=== PATIENT | female | born 1995 | race Caucasian/White ===

== ENCOUNTER → 2020-07-24 16:34 | Outpatient (CLI) | payer OTHER, SELFPAY | PROVIDERS: PCP Pediatrics; Referring Provider Obstetrics & Gynecology; Visit Provider Obstetrics & Gynecology | DX: Z03.818 Encounter for observation for suspected exposure to other biological agents ruled out (principal) | CPT/HCPCS: 87635; C9803; U0002 ==

== ENCOUNTER 2020-07-27 00:25 | Inpatient (IN) | payer OTHER, MEDICAID, SELFPAY ==
[2020-07-27] VITALS (72 sets, daily range): BP systolic 98–178; BP diastolic 54–97; PULSE 61–165; RESP 16–18; TEMP 36.3–37.6; O2SAT 94–100; BMI 24.0
[2020-07-27 00:26] LABS: ROM Internal Control Test YES-OK TO RESULT pt. (Internal QC)
[2020-07-27 00:27] LABS: ROM Patient Test POSITIVE (Negative)
[2020-07-27] MEDS: Lactated Ringers 1,000 ML 200 ML IV ×2 (00:45→08:22)
[2020-07-27 01:08] LABS: Absolute Lymphocyte Count 2.08 X10^3/uL (0.83-4.51); Absolute Neutrophil Count 4.6 X10^3/uL (2.0-7.7); Basophil# 0.02 X10^3/uL; Basophil% 0.3 % (0-1); Eosinophil# 0.06 X10^3/uL; Eosinophils% 0.8 % (0-5); Hematocrit 36.3 % (37-47); Hemoglobin 12.2 g/dL (12.0-15.0); Lymphocyte # 2.08 X10^3/ul (0.83-4.51); Lymphocyte % 28.5 % (19-41); Mean Corp Hgb Conc 33.6 g/dL (32-36); Mean Corpuscular Hgb 30.7 pg (27.0-32.0); Mean Corpuscular Volume 91.4 fL (81-99); Mean Platelet Vol. 12.1 fl (6.2-12.0); Monocyte# 0.56 X10^3/uL; Monocyte% 7.7 % (0-10); NRBC Flagged by Analyzer 0 % (0-5); Neutrophil # 4.55 X10^3/uL (2.7-7.7); Neutrophil % 62.2 % (47-70); Platelet Count 132 K/mm3 (150-450); RBC Distribution Width CV 15.4 % (11.6-14.6); RBC Distribution Width SD 51.1 fl (35.1-43.9); Red Blood Count 3.97 M/mm3 (4.2-5.4); White Blood Count 7.3 K/mm3 (4.4-11.0)
[2020-07-27] MEDS: Lactated Ringers 500 ML 999 ML IV ×3 (02:10→05:12)
[2020-07-27] MEDS: Ondansetron 4 MG/2 ML Vial IV (03:36)
[2020-07-27 03:48] LABS: ALB/GLOB Ratio 0.8 RATIO (0.9-2.4); AST(SGOT) 18 U/L (15-37); Alanine Aminotransfer ALT/SGPT 18 U/L (13-56); Alkaline Phosphatase 194 U/L (45-117); Anion Gap 7 (5-15); BUN 8 mg/dL (7-18); BUN/Creat Ratio 12.1 RATIO (10-20); Calcium,Total 9.4 mg/dL (8.5-10.1); Chloride 108 mmol/L (98-107); Creatinine, Serum 0.66 mg/dL (0.55-1.02); EST Glomerular Filtration Rate 118 mL/min (>60); Est Glom Filt Rate - Afr Amer 143 mL/min (>60); Estimated Creatinine Clearance 109.66 ml/min; Globulin 3.7 g/dL (2.2-4.2); Glucose 104 mg/dL (74-106); Potassium 3.5 mmol/L (3.5-5.1); Protein, Total 6.7 g/dL (6.4-8.2); Sodium Level 139 mmol/L (136-145)
[2020-07-27] MEDS: fentaNYL-bupivacaine (epidural) 100 ML BAG EPIDURAL (03:51)
[2020-07-27 04:49] LABS: Protein, Urine (Random) 15.3 mg/dL (<11.9); Protein:Creat Ratio 244 mg/g CRE (0-200)
[2020-07-27] MEDS: Acetaminophen 325 MG Tablet PO (05:32)
[2020-07-27] MEDS: proCHLORPERazine 10 MG/2 ML Vial IV (07:11)
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
[2020-07-27] MEDS: Oxytocin 30 units/NS 500 ml 30 UNITS/500 ML IV.SOLN 334 UNITS IV (11:30)
--- NOTE | 2020-07-27 12:58 | EX.PCM.OBRPT ---
Problems Associated Problem List Diagnoses (1) Leakage, amniotic fluid: (2) 40 weeks gestation of : Report of Operation (OB) Information Final MIMI: 07/21/20 Gestational age: 40 Weeks and 6 Days Operative Information Date of Procedure: 07/27/20 Pre-Operative Diagnosis: Term gestation, SROM, Spontaneous labor Post-Operative Diagnosis: live male infant Type of Anesthesia: Epidural Induction Maternal Presentation: Spontaneous Rupture of Membranes Maternal Presentation: Patient presented to triage with leakage of fluid and contractions. Findings Description of Procedure: Patient complete dilation. Provided bedside support throughout pushing. Infant head delivered with maternal effort followed by anterior and posterior shoulders. Vigorous infant placed on maternal abdomen and was attended to by nursing staff. 3 vessel cord clamped and cut after 2 minute delay. placed immediately skin to skin with patient. Pitocin IV started for active management of the third stage of labor. Placenta delivered spontaneously and intact. After inspection, it was noted patient had a second degree perineal laceration, vaginal laceration and bilateral labial lacerations. Lacerations repaired in usual fashion using 3-0 Vicryl. Hemostasis occurred. Fundus firm 2 below U. EBL 400 cc. Patient and infant bonding well at this time. Surgery/ Procedure Performed: Spontaneous Vaginal Delivery Presentation: Positive for Vertex Amniotic Membrane Rupture Type: Spontaneous Time Membrane Ruptured: 1030 Amniotic Fluid Description: Clear Placental Delivery Description: Spontaneous Placenta Disposition: [facility] Cord Vessel Description: 3 Vessels Cord Entanglement: None, Around neck x 1, loose and - (Around body X1 loose) Nuchal Cord Compression: Without compression Gender: Male (1 minute): 8 (5 minute): 10 Delayed Cord Clamping: Yes Esitmated Blood Loss (mL): 400 Medications Given Medications Given After Delivery: IV Pitocin Post Vaginal Delivery Episiotomy Description: None Laceration: Vaginal Extension/lac (Bilateral labial ) and 2nd degree Complications Complications: None Baby B Information Amniotic Membrane Rupture Type: Spontaneous Operative Information Cord Entanglement: None, Around neck x 1, loose and - (Around body X1 loose) Cord Vessel Description: 3 Vessels (1 minute): 8 (5 minute): 10
--- NOTE | 2020-07-27 15:59 | NURSING ---
[facility] from [facility] draw on 01/08/2020 pt is O negative. At 28wks and 2 days at [facility] pt received Rhogam. Upon admission at [facility] blood bank resulted in pt being 0 positive. Nurse discussed this with Wero in Blood Bank and he requested another large purple tube of her blood. Tube was sent and it was confirmed that pt is O positive. This information was passed on to Vicki felix. She is looking into the matter through [facility].
[2020-07-27] MEDS: Ibuprofen 600 MG Tablet PO (16:44)
--- NOTE | 2020-07-27 17:33 | NURSING ---
Pt is rubella immune and will not be receiving MMR per review of chart.
[2020-07-27] MEDS: Ferrous Sulfate 325 MG Tablet PO (18:55)
[2020-07-27] MEDS: Acetaminophen 500 MG Tablet 1000 MG PO (20:19)
[2020-07-28 00:06] VITALS: BP 143/90; PULSE 103; RESP 16; TEMP 36.4; O2SAT 100
[2020-07-28] MEDS: Ibuprofen 600 MG Tablet PO ×4 (00:18→23:48)
[2020-07-28] MEDS: Acetaminophen 500 MG Tablet 1000 MG PO ×3 (04:22→20:32)
[2020-07-28 04:26] VITALS: BP 129/75; PULSE 111; RESP 16; TEMP 36.7; O2SAT 99
[2020-07-28 08:08] VITALS: BP 129/78; PULSE 106; RESP 18; TEMP 36.2; O2SAT 99
--- NOTE | 2020-07-28 11:27 | PCM.PN.OB ---
Subjective Subjective: Patient seen at bedside. Feeling good today. Reports getting some sleep. going well with support. Ambulating and voiding without difficulty. Ice to perineum. Lochia decreasing. Pain controlled with Motrin and Tylenol PO. Desires discharge home tomorrow. Objective Data Objective Data Vital Signs: Vital Signs Temp Pulse Resp BP Pulse Ox 97.1 F L 106 H 18 129/78 H 99 07/28/20 08:08 07/28/20 08:08 07/28/20 08:08 07/28/20 08:08 07/28/20 08:08 Oxygen Delivery Method Room Air Weight: 136 lb 0.403 oz Body Mass Index (BMI) 24.0 Intake & Output: Intake and Output for Last 24 Hours 07/26/20 07/27/20 07/28/20 23:59 23:59 23:59 Intake Total 3876.67 / 3876.67 Output Total 1400 / 1400 300 / 300 Balance 2476.67 / 2476.67 -300 / -300 Lab / Micro Data Result Diagrams: 07/27/20 00:45 07/27/20 00:45 Physical Exam Const alert and no apparent distress General Appearance: cooperative and comfortable Exam Limitations: no limitations HEENT normocephalic Eyes General Eye: normal appearance of both eyes Neck full ROM General: normal visual inspection Chest Chest: symmetrical chest wall rise Resp normal respiratory effort and normal air movement Effort and Inspection: symmetric chest movement Auscultation: clear to auscultation bilaterally Cardio regular rate and regular rhythm GI normal to inspection, nondistended, normoactive bowel sounds Groin / Perineum Exam: other Laceration well approximated. Minimal edema noted. Back/Spine normal ROM Extremity full ROM and no calf tenderness General Extremity: normal exam except as noted Skin no rashes or lesions noted Neuro CN's II-XII intact bilaterally Psych mental status grossly normal Assessment & Plan Assessment/Plan (1) (spontaneous vaginal delivery): Status: Acute Code(s): O80 - Encounter for full-term uncomplicated delivery (2) Laceration, obstetrical, second degree: Status: Acute Code(s): O70.1 - Second degree perineal laceration during delivery Plan: Routine care Rotate Ice packs and Witch Nighat pads to perineum Pain control support Anticipate discharge home tomorrow
[2020-07-28 12:09] VITALS: BP 124/87; PULSE 108; RESP 18; TEMP 36.1
[2020-07-28] MEDS: Senna/Docusate Sodium 1 Tablet PO (12:24)
[2020-07-28] MEDS: Ferrous Sulfate 325 MG Tablet PO (15:07)
[2020-07-28 17:45] VITALS: BP 125/81; PULSE 97; RESP 18; TEMP 36.3; O2SAT 98
[2020-07-28 20:23] VITALS: BP 127/92; PULSE 100; RESP 16; TEMP 36.6
[2020-07-29 02:00] VITALS: BP 141/91; PULSE 91; RESP 14; TEMP 36.6
[2020-07-29] MEDS: Acetaminophen 500 MG Tablet 1000 MG PO (05:56)
[2020-07-29] MEDS: Ibuprofen 600 MG Tablet PO (07:37)
[2020-07-29 07:43] VITALS: BP 123/84; PULSE 96; RESP 14; TEMP 36.4
--- NOTE | 2020-07-29 08:45 | PN_ITS ---
Subjective Subjective: Doing well per patient and nursing staff. Ambulating and taking PO without difficulty. . Denies any headache, visual changes, chest pain, SOB, leg pain or increased vaginal bleeding. Planning D/C home today. Pain controlled. Objective Data Objective Data Vital Signs: Vital Signs Temp Pulse Resp BP Pulse Ox 97.6 F L 96 14 123/84 H 98 07/29/20 07:43 07/29/20 07:43 07/29/20 07:43 07/29/20 07:43 07/28/20 17:45 Oxygen Delivery Method Room Air Weight: 136 lb 0.403 oz Body Mass Index (BMI) 24.0 Intake & Output: Intake and Output for Last 24 Hours 07/27/20 07/28/20 07/29/20 23:59 23:59 23:59 Intake Total 3876.67 / 3876.67 Output Total 1400 / 1400 300 / 300 Balance 2476.67 / 2476.67 -300 / -300 Lab / Micro Data Result Diagrams: 07/27/20 00:45 07/27/20 00:45 Physical Exam Const alert and oriented x3 General Appearance: cooperative Orientation / Consciousness: awake, oriented to person, oriented to place and oriented to time Exam Limitations: no limitations HEENT normocephalic Head and Scalp: normal to inspection, normocephalic and atraumatic Face and Sinus: normal facial exam Eyes General Eye: normal appearance of both eyes Neck full ROM Chest Chest: symmetrical chest wall rise Resp normal respiratory effort and normal air movement Auscultation: clear to auscultation bilaterally Cardio regular rate, regular rhythm, S1 normal heart sound, S2 normal heart sound, no m urmurs, no rub, no gallops and no clicks GI normal to inspection, nondistended, normoactive bowel sounds and non-tender GI Narrative: fundus firm 2 below U appearance of the vagina normal Bladder / Kidney Exam: no CVA tenderness Back/Spine normal ROM Extremity normal to inspection and full ROM Skin no rashes or lesions noted Neuro oriented x3 and moves all extremities Sensorium / Orientation: awake, alert and oriented to person Motor Exam: clonus absent Deep Tendon Reflexes: Rt Patellar (L4): 2+ and Lt Patellar (L4): 2+ Assessment & Plan Assessment/Plan (1) (spontaneous vaginal delivery): Status: Acute Code(s): O80 - Encounter for full-term uncomplicated delivery Plan: 1) PPD#2. Routine discharge and instructions 2) 3) D/C home 4) Follow up in 2 weeks virtually and 6 weeks in office
[2020-07-29 12:16] VITALS: BP 132/80; PULSE 100; RESP 15; TEMP 36.1
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
== END 2020-07-29 12:30 | disposition home or self-care (01) | DRG 807 ==
LOC: WPOUT 00:28 → WP 00:28
PROVIDERS: Admitting Provider Advanced Practice Midwife; PCP Pediatrics; Referring Provider Advanced Practice Midwife; Visit Provider Advanced Practice Midwife
DX: O42.92 Full-term premature rupture of membranes, unspecified as to length of time between rupture and onset of labor (principal); Z37.0 Single live birth; O70.1 Second degree perineal laceration during delivery; O69.81X0 Labor and delivery complicated by cord around neck, without compression, not applicable or unspecified; Z3A.40 40 weeks gestation of pregnancy; F43.10 Post-traumatic stress disorder, unspecified; O99.344 Other mental disorders complicating childbirth
CPT/HCPCS: 59025; 59050; 80053; 82570; 84112; 84156; 85025; 86850; 86900; 86901; 99218; J7120; G0378; J2405

== ENCOUNTER → 2020-07-30 20:00 | Outpatient (CLI) | payer OTHER, MEDICAID, SELFPAY ==
[2020-07-27 00:14] VITALS: BMI 24.0
== END ==
PROVIDERS: PCP Pediatrics; Referring Provider Advanced Practice Midwife; Visit Provider Advanced Practice Midwife
DX: Z39.1 Encounter for care and examination of lactating mother (principal)
CPT/HCPCS: 96158

== ENCOUNTER 2021-02-16 09:53 | Emergency (ER) | payer OTHER, MEDICAID, SELFPAY ==
[2021-02-16 09:54] VITALS: BP 115/81; PULSE 83; RESP 17; TEMP 36.6; O2SAT 100; BMI 18.5
--- NOTE | 2021-02-16 10:08 | EKG12_ITS ---
Test Reason : SYNCOPE Blood Pressure : / mmHG Vent. Rate : 067 BPM Atrial Rate : 067 BPM P-R Int : 138 ms QRS Dur : 070 ms QT Int : 388 ms P-R-T Axes : -24 057 042 degrees QTc Int : 409 ms Normal sinus rhythm Normal ECG Confirmed by RAMON VIVAS, EMIGDIO ([id number]), sports editor DERECK OLMOS ([id number]) on 02/17/2021 1:55:26 PM Referred By: Confirmed By:EMIGDIO NAVARRO MD
--- NOTE | 2021-02-16 10:08 | RAD_ITS ---
STUDY: X-RAY CHEST REASON FOR EXAM: Female, 25 years old. Syncope TECHNIQUE: Single AP portable view of the chest. COMPARISON: None. FINDINGS: EKG leads overlie the chest The lungs are clear and expanded. There is no demonstrated pleural abnormality. Normal size heart. Normal mediastinum and mendoza. Normal visualized pulmonary arteries. Normal visualized aortic arch and descending thoracic aorta. Normal visualized thoracic spine. Normal visualized ribs, clavicles, and shoulders. There is no demonstrated abnormality of the visualized soft tissue structures of the upper abdomen. RAD/Chest 1 View (Portable) IMPRESSION: Normal x-ray examination of the chest. Electronically Signed: Duc Matos MD at 10:45 EST , Service support ,
--- NOTE | 2021-02-16 10:10 | EX.ED.DYSGE1 ---
HPI History of Present Illness Chief Complaint: Syncope Informant: patient and parent Onset/Context/Timing Onset: Today Context: Sudden Onset Timing: Lasts (Approximately 1 minute) Quality: Hot Location: Generalized Worsened by: Nothing Relieved by: Nothing Associated Symptoms Associated Symptoms: Menstrual cramping, paresthesias, nausea Narrative Narrative: Presents with a syncopal episode that occurred today. Patient states she was having some menstrual cramps prior to the syncopal episode. Patient states she felt hot prior to the syncopal episode. Patient states she was out for approximately 1 minute. Patient denies any palpitations. Patient denies any lightheadedness or dizziness prior to passing out. Patient states that she was nauseated before and after she passed out. Patient also admits to some tingling in her hands and fingers after she passed out for a few minutes. Patient states this has resolved since that time. [facility] Medical History Anxiety Autoimmune disease Depression Headache Trauma Home Medications cholecalciferol (vitamin D3) [Vitamin D3] 125 mcg PO DAILY 07/27/20 [History Last Taken Unknown] levocetirizine [Xyzal] 5 mg PO DAILY 07/27/20 [History Last Taken Unknown] [id number] 1 tab PO DAILY 07/27/20 [History Last Taken Unknown] Allergy/AdvReac Type Severity Reaction Status Date / Time animal dander Allergy Other Verified 07/27/20 00:19 Sulfa (Sulfonamide Allergy Hives Verified 07/27/20 00:19 Antibiotics) Social History Smoking Status: Never smoker ROS ROS ED Constitutional Constitutional ED: Denies chills or fever(s) Eyes Eyes: Denies blurry vision or change in vision ENT ENT ED: Denies rhinorrhea or sore throat Cardiovascular Cardiovascular: Denies chest pain or palpitations Respiratory/Chest Respiratory/Chest: Denies cough or dyspnea Gastrointestinal Gastrointestinal: Reports abdominal pain and nausea; Denies vomiting Genitourinary Genitourinary ED: Denies dysuria or hematuria Musculoskeletal Musculoskeletal: Denies back pain or neck pain Integumentary Denies abscess or rash Neurologic Neurologic: Reports paresthesias; Denies headache(s) or weakness Allergic/Immunologic Allergic/Immunologic ED: Denies mouth swelling or urticaria EXAM Physical Exam Const Vital Signs: 02/16/21 09:54 02/16/21 09:59 Temperature 97.8 F Temperature Source Oral Pulse Rate 83 Respiratory Rate 17 Respiratory Effort Normal Non-Labored Respiratory Pattern Normal Blood Pressure 115/81 H Blood Pressure Mean 92 Pulse Ox 100 Oxygen Delivery Method Room Air Positive well nourished and well developed General Appearance ED: well developed HEENT Reports moist mucous membranes Neck supple and no JVD Resp normal respiratory effort and clear to auscultation bilaterally Cardio regular rate, regular rhythm and no murmurs GI normal to inspection, nondistended, normoactive bowel sounds and non-tender Palpation: soft Extremity normal to inspection General Extremety ED: Negative for edema or tenderness General Extremity: Negative for edema Neuro oriented x3, CN's II-XII intact bilaterally and no sensory deficits noted Sensorium / Orientation: alert Motor Exam: strength 5/5 throughout Psych mental status grossly normal Skin no rashes or lesions noted MDM MDM MDM Narrative Medical decision making narrative: EKG was obtained. On my interpretation, it showed a normal sinus rhythm with a rate of 67. FL interval, QRS interval, and QTc intervals were all normal. [place] was normal. There are no acute ST or T wave changes. There is clearly within normal limits. Comprehensive metabolic profile was within normal limits. Serum hCG was negative. Urinalysis shows leukocyte esterase of 100. Occult blood was 250. There are greater than 100 red blood cells. Patient is currently on her menstrual period. There is no evidence of urinary tract infection. Patient was advised of her findings. Portable 1 view chest x-ray was obtained. On my interpretation, lung funes are clear. There is normal cardiac silhouette. Bony thorax is normal. There is no acute process noted. Radiologist also interpreted the x-ray and agrees. Patient was advised of her findings. Patient was instructed to follow-up with her primary care physician in 3 to 5 days. Patient was instructed to drink plenty of fluids. Patient was instructed to return if worse in any way. Patient and her mother understood and were agreeable with the plan. All questions were answered. Lab Data Attestation: I reviewed the patient's lab results. Labs: Laboratory Results - last 24 hr 02/16/21 02/16/21 02/16/21 10:00 10:00 10:00 WBC 5.8 RBC 4.68 Hgb 13.7 Hct 40.5 MCV 86.5 MCH 29.3 MCHC 33.8 RDW Std Deviation 41.0 RDW Coeff of [place] 13.0 Plt Count 223 MPV 10.5 Immature Gran % (Auto) 0.200 Neut % (Auto) 72.5 H Lymph % (Auto) 19.6 [place] % (Auto) 4.6 Eos % (Auto) 2.6 Baso % (Auto) 0.5 Absolute Neuts (auto) 4.2 Absolute Lymphs (auto) 1.14 Nucleated RBC % 0 Sodium 139 Potassium 4.2 Chloride 110 H Carbon Dioxide 25.0 Anion Gap 4 L BUN 13 Creatinine 0.79 Estim Creat Clear Calc 80.25 Est GFR (MDRD) Af Amer 115 Est GFR (MDRD) Non-Af 95 BUN/Creatinine Ratio 16.4 Glucose 98 Calcium 8.9 Total Bilirubin 1.10 H AST 17 ALT 20 Alkaline Phosphatase 71 Total Protein 7.3 Albumin 3.8 Globulin 3.5 Albumin/Globulin Ratio 1.1 Serum , Qual NEGATIVE Urine Color Urine Clarity Urine pH Ur Specific [place] Urine Protein Urine Glucose (UA) Urine Ketones Urine Occult Blood Urine Nitrite Urine Bilirubin Urine Urobilinogen Ur Leukocyte Esterase Urine RBC Urine WBC Ur Squamous Epith Cells Urine Bacteria Urine Mucus 02/16/21 12:55 WBC RBC Hgb Hct MCV MCH MCHC RDW Std Deviation RDW Coeff of [place] Plt Count MPV Immature Gran % (Auto) Neut % (Auto) Lymph % (Auto) [place] % (Auto) Eos % (Auto) Baso % (Auto) Absolute Neuts (auto) Absolute Lymphs (auto) Nucleated RBC % Sodium Potassium Chloride Carbon Dioxide Anion Gap BUN Creatinine Estim Creat Clear Calc Est GFR (MDRD) Af Amer Est GFR (MDRD) Non-Af BUN/Creatinine Ratio Glucose Calcium Total Bilirubin AST ALT Alkaline Phosphatase Total Protein Albumin Globulin Albumin/Globulin Ratio Serum , Qual Urine Color Yellow Urine Clarity Cloudy Urine pH 6.0 Ur Specific [place] 1.020 Urine Protein 100 H Urine Glucose (UA) Normal Urine Ketones 50 H Urine Occult Blood 250 H Urine Nitrite Negative Urine Bilirubin Negative Urine Urobilinogen Normal Ur Leukocyte Esterase 100 H Urine RBC > 100 SEEN Urine WBC 0 SEEN Ur Squamous Epith Cells 0-5 SEEN Urine Bacteria 0 SEEN Urine Mucus 0 SEEN Radiography Chest X-Ray - ED: 1 View, Read by ED Physician, Read by Radiologist and Normal Diagnostic Testing: Clinical Impression(s) from Imaging Studies Chest X-Ray 02/16/21 10:08 IMPRESSION: Normal x-ray examination of the chest. Electronically Signed: Duc Matos MD at 10:45 EST , Service support , EKG Initial EKG: Attestation: I personally reviewed and interpreted this EKG as follows: Interpretation: Sinus Rhythm (67) and No Acute Injury Pattern Prior EKG tracings: not available for review Discharge Plan Triage Chief Complaint: Syncope ED Provider: Jeremie Oakes Dx/Rx/DC Orders Clinical Impression: Syncope Instructions: ED Fainting, Uncertain Cause Prescriptions: No Action [id number] 1 mg Tablet 1 tab PO DAILY RF: 0 cholecalciferol (vitamin D3) [Vitamin D3] 125 mcg (5,000 unit) Tablet 125 mcg PO DAILY RF: 0 levocetirizine [Xyzal] 5 mg Tablet 5 mg PO DAILY RF: 0 Hold Instructions: while if possible. Primary Care Provider: Malachi Smith Referrals: Malachi Smith MD [Primary Care Provider] - 3-5 Days Disposition Disposition: Home, Self Care
--- NOTE | 2021-02-16 10:11 | NURSING ---
NO OLD EKGS
[2021-02-16 10:23] LABS: Absolute Lymphocyte Count 1.14 X10^3/uL (0.83-4.51); Absolute Neutrophil Count 4.2 X10^3/uL (2.0-7.7); Basophil# 0.03 X10^3/uL; Basophil% 0.5 % (0-1); Eosinophil# 0.15 X10^3/uL; Eosinophils% 2.6 % (0-5); Hematocrit 40.5 % (37-47); Hemoglobin 13.7 g/dL (12.0-15.0); Lymphocyte # 1.14 X10^3/ul (0.83-4.51); Lymphocyte % 19.6 % (19-41); Mean Corp Hgb Conc 33.8 g/dL (32-36); Mean Corpuscular Hgb 29.3 pg (27.0-32.0); Mean Corpuscular Volume 86.5 fL (81-99); Mean Platelet Vol. 10.5 fl (6.2-12.0); Monocyte# 0.27 X10^3/uL; Monocyte% 4.6 % (0-10); NRBC Flagged by Analyzer 0 % (0-5); Neutrophil # 4.23 X10^3/uL (2.7-7.7); Neutrophil % 72.5 % (47-70); Platelet Count 223 K/mm3 (150-450); Red Blood Count 4.68 M/mm3 (4.2-5.4); White Blood Count 5.8 K/mm3 (4.4-11.0)
[2021-02-16] MEDS: 0.9% Normal Saline 1,000 ML 1000 ML IV (10:25)
[2021-02-16 10:33] LABS: ALB/GLOB Ratio 1.1 RATIO (0.9-2.4); AST(SGOT) 17 U/L (15-37); Alanine Aminotransfer ALT/SGPT 20 U/L (13-56); Albumin, Serum 3.8 g/dL (3.2-5.0); Alkaline Phosphatase 71 U/L (45-117); Anion Gap 4 (5-15); BUN 13 mg/dL (7-18); BUN/Creat Ratio 16.4 RATIO (10-20); Calcium,Total 8.9 mg/dL (8.5-10.1); Chloride 110 mmol/L (98-107); Creatinine, Serum 0.79 mg/dL (0.55-1.02); EST Glomerular Filtration Rate 95 mL/min (>60); Est Glom Filt Rate - Afr Amer 115 mL/min (>60); Estimated Creatinine Clearance 80.25 ml/min; Globulin 3.5 g/dL (2.2-4.2); Glucose 98 mg/dL (74-106); Potassium 4.2 mmol/L (3.5-5.1); Protein, Total 7.3 g/dL (6.4-8.2); Sodium Level 139 mmol/L (136-145)
[2021-02-16 10:44] LABS: Internal QC Validated? YES +Cl - CLEAR BKGD; Pregnancy, Serum, hCG Quali. NEGATIVE Negative
[2021-02-16 13:01] LABS: Bacteria 0 SEEN /hpf (None Seen); Mucous, Urine 0 SEEN /hpf (<or=2+); White Blood Cells 0 SEEN /hpf (0-5)
[2021-02-16 13:02] LABS: Color, Urine Yellow (Yellow); Glucose, Dipstick Normal (Normal); Ketone-Dipstick 50 mg/dl (Negative); Leukocyte Esterase-Dipstick 100 /ul (Negative); Nitrite-Dipstick Negative (Negative); Occult Blood-Urine 250 /ul (Negative); Protein-Dipstick 100 mg/dl (Negative); Urine Bilirubin Dipstick Negative (Negative); Urine Clarity Cloudy (Clear); Urine Urobilinogen Normal (Normal)
[2021-02-16 13:08] LABS: Red Blood Cells-Urine > 100 SEEN /hpf (0-5); Squamous Epithelial Cells - UA 0-5 SEEN /hpf (5-10)
[2021-02-16 13:44] VITALS: BP 114/73; PULSE 73; RESP 23; O2SAT 100
== END 2021-02-16 13:45 | disposition home or self-care (01) ==
PROVIDERS: Emergency Provider Emergency Medicine; PCP Pediatrics
DX: R55 Syncope and collapse (principal); R25.2 Cramp and spasm; R10.9 Unspecified abdominal pain; R11.0 Nausea; D89.89 Other specified disorders involving the immune mechanism, not elsewhere classified; F32.A Depression, unspecified; F41.9 Anxiety disorder, unspecified; Z79.899 Other long term (current) drug therapy
CPT/HCPCS: 71045; 80053; 81001; 84703; 85025; 93005; 99285; J7030; A4216

== ENCOUNTER 2021-10-25 14:42 | Emergency (ER) | payer OTHER, MEDICAID, SELFPAY ==
[2021-10-25 14:43] VITALS: BP 110/70; PULSE 86; RESP 18; TEMP 35.9; O2SAT 96; BMI 18.5
--- NOTE | 2021-10-25 15:10 | EKG12_ITS ---
Test Reason : SYNCOPE Blood Pressure : / mmHG Vent. Rate : 093 BPM Atrial Rate : 093 BPM P-R Int : 152 ms QRS Dur : 076 ms QT Int : 380 ms P-R-T Axes : 055 049 065 degrees QTc Int : 472 ms Normal sinus rhythm Normal ECG Confirmed by RAMON VIVAS, EMIGDIO ([id number]), editorial intern DERECK OLMOS ([id number]) on 10/28/2021 12:59:17 PM Referred By: TL Confirmed By:EMIGDIO NAVARRO MD
--- NOTE | 2021-10-25 15:11 | EX.ED.GENINJ ---
HPI History of Present Illness Chief Complaint: Nausea/Vomiting/Diarrhea Informant: patient and EMS Narrative Narrative: Brought in by EMS after syncopal episode around 1:30 PM. Prodromal lightheaded symptoms. Awakened this morning 330 vomiting and diarrhea recurrent episodes 430, 830 and then at 130. No sick contacts. [place] warm per mother. No abdominal pain. Patient ate with family yesterday chicken dinner, nobody else sick. Last menstrual period a week ago. No history of similar. History of fibromyalgia on medications. Denies recent antibiotics. Status post Zofran by EMS with improving symptoms. Status post 500 cc of normal saline. Denies any prodromal chest pains or shortness of breath. Prior similar symptoms: No PFSH PFSH Medical History Anxiety Autoimmune disease Depression Headache Trauma Home Medications cholecalciferol (vitamin D3) 125 mcg (5,000 unit) tablet (Vitamin D3) 125 mcg PO DAILY 07/27/20 [History Last Taken Unknown] levocetirizine 5 mg tablet (Xyzal) 5 mg PO DAILY 07/27/20 [History Last Taken Unknown] amitriptyline 10 mg tablet 10 mg PO QHS 10/25/21 [History Last Taken Unknown] drospirenone 3 mg-ethinyl estradiol 0.02 mg tablet (Loryna (28)) 1 tab PO DAILY 10/25/21 [History Last Taken Unknown] methylphenidate HCl 10 mg tablet 10 mg PO DAILY 10/25/21 [History Last Taken Unknown] omeprazole 40 mg capsule,delayed release 40 mg PO BID 10/25/21 [History Last Taken Unknown] ondansetron 4 mg disintegrating tablet 4 mg PO Q6H PRN nausea and vomiting #10 tabs 10/25/21 [Rx Last Taken Unknown] Allergy/AdvReac Type Severity Reaction Status Date / Time animal dander Allergy Other Verified 10/25/21 14:43 Sulfa (Sulfonamide Allergy Hives Verified 10/25/21 14:43 Antibiotics) Social History Smoking Status: Never smoker ROS ROS ED Constitutional Constitutional ED: Denies chills, fever(s) or sweats Eyes Eyes: Denies change in vision ENT ENT ED: Denies dysphagia or sore throat Cardiovascular Cardiovascular: Reports other Details: Syncope ; Denies chest pain, leg edema, palpitations or racing heartbeat Respiratory/Chest Respiratory/Chest: Denies cough, dyspnea or dyspnea on exertion Gastrointestinal Gastrointestinal: Reports diarrhea, nausea and vomiting; Denies abdominal pain Genitourinary Genitourinary ED: Denies dysuria, hematuria or urinary frequency Musculoskeletal Musculoskeletal: Denies back pain, extremity pain or neck pain Integumentary Denies rash or wounds Neurologic Neurologic: Denies headache(s), paresthesias or weakness EXAM Physical Exam Const Vital Signs: 10/25/21 14:43 10/25/21 16:43 10/25/21 16:57 Temperature 96.7 F L Temperature Source Temporal Pulse Rate 86 81 81 Respiratory Rate 18 22 H 18 Blood Pressure 110/70 121/81 H 121/81 H Blood Pressure Mean 83 94 Pulse Ox 96 100 100 Oxygen Delivery Method Room Air Room Air Positive well nourished and well developed General Appearance ED: well developed and NAD HEENT HEENT Narrative: Mild dry mucosal membranes normocephalic and atraumatic Eyes PERRL, EOMs intact bilaterally and conjunctivae normal General Eye ED: Yes normal appearance of both eyes Neck no lymphadenopathy and supple General: Negative for tenderness Chest Wall Chest: Negative for tenderness Resp normal respiratory effort and normal air movement Effort and Inspection: symmetric chest movement; Negative for respiratory distress Cardio regular rate, regular rhythm and no murmurs Peripheral Pulses: pulses 2+ throughout GI normal to inspection, nondistended, normoactive bowel sounds and non-tender GI Narrative: Negative Muñoz's or McBurney's tenderness Palpation: Negative for guarding or rebound tenderness present Back/Spine no CVA tenderness and no thoracic nor lumbar tenderness Extremity normal to inspection General Extremety ED: Negative for edema or tenderness General Extremity: Negative for edema Neuro oriented x3 and no sensory deficits noted Sensorium / Orientation: awake and alert Skin no rashes or lesions noted and no wounds MDM MDM MDM Narrative Medical decision making narrative: Patient vital stable no focal deficits. EKG normal. She is already feeling better with Zofran and fluids given by EMS. She is given additional liter of fluids. I did check labs which are normal. Urine had leukocytes and white cells and bacteria she did not have any symptoms therefore sent for culture. Would not treat at this time. She is unable to provide a stool sample she has no C. difficile risk factors. She is tolerating oral fluids on reevaluation. Prescription for Zofran to use as needed. She is able to ambulate with no return of symptoms. Outpatient follow-up with return precautions. All questions were answered. Lab Data Attestation: I reviewed the patient's lab results. Labs: Laboratory Results - last 24 hr 10/25/21 10/25/21 10/25/21 15:15 15:15 15:28 WBC 9.8 RBC 4.82 Hgb 14.0 Hct 43.6 MCV 90.5 MCH 29.0 MCHC 32.1 RDW Std Deviation 42.7 RDW Coeff of [place] 12.9 Plt Count 214 MPV 10.4 Immature Gran % (Auto) 0.500 Neut % (Auto) 90.9 H Lymph % (Auto) 5.1 L [place] % (Auto) 3.0 Eos % (Auto) 0.3 Baso % (Auto) 0.2 Absolute Neuts (auto) 8.9 H Absolute Lymphs (auto) 0.50 L Nucleated RBC % 0 Differential Comment SEE COMMENT Platelet Estimate ADEQUATE RBC Morphology N CHROM Anisocytosis RARE Macrocytosis RARE Sodium 141 Potassium 4.0 Chloride 114 H Carbon Dioxide 22.0 Anion Gap 5 BUN 12 Creatinine 0.70 Estim Creat Clear Calc 89.99 Est GFR (MDRD) Af Amer 132 Est GFR (MDRD) Non-Af 109 BUN/Creatinine Ratio 17.1 Glucose 99 Calcium 8.4 L Urine Color Yellow Urine Clarity Clear Urine pH 6.0 Ur Specific [place] 1.020 Urine Protein 30 H Urine Glucose (UA) Normal Urine Ketones 5 H Urine Occult Blood Negative Urine Nitrite Negative Urine Bilirubin Negative Urine Urobilinogen Normal Ur Leukocyte Esterase 100 H Urine RBC 0-5 SEEN Urine WBC 10-25 SEEN Ur Squamous Epith Cells 0-5 SEEN Urine Bacteria 2+ Urine Mucus 3+ Urine Test Negative EKG Initial EKG: Attestation: I personally reviewed and interpreted this EKG as follows: Comments: Sinus rate of 93, no ST or T wave changes QTC 472. Discharge Plan Triage Chief Complaint: Nausea/Vomiting/Diarrhea Other Complaint: Syncope ED Provider: Curtis Peres Dx/Rx/DC Orders Clinical Impression: Nausea vomiting and diarrhea, Syncope, History of fibromyalgia Instructions: Causes of Syncope, ED Vomiting and Diarrhea ... Prescriptions: New ondansetron 4 mg tablet,disintegrating 4 mg PO Q6H PRN (Reason: nausea and vomiting) Qty: 10 0RF No Action cholecalciferol (vitamin D3) [Vitamin D3] 125 mcg (5,000 unit) Tablet 125 mcg PO DAILY levocetirizine [Xyzal] 5 mg Tablet 5 mg PO DAILY Hold Instructions: while if possible. methylphenidate HCl 10 mg Tablet 10 mg PO DAILY omeprazole 40 mg Capsule,Delayed Release(Dr/Ec) 40 mg PO BID amitriptyline 10 mg Tablet 10 mg PO QHS drospirenone-ethinyl estradiol [[place] (28)] 3-0.02 mg Tablet 1 tab PO DAILY Primary Care Provider: Malachi Smith Referrals: Malachi Smith MD [Primary Care Provider] - 3-5 Days Activity Restrictions/Additional Instructions: Normal EKG labs are stable. Continue oral fluids for hydration. Zofran as needed. Follow-up with your doctor. Disposition Disposition: Home, Self Care Discharge Date/Time: 10/25/21 16:58
[2021-10-25] MEDS: 0.9% Normal Saline 1,000 ML 1000 ML IV (15:20)
[2021-10-25 15:41] LABS: Anion Gap 5 (5-15); BUN 12 mg/dL (7-18); BUN/Creat Ratio 17.1 RATIO (10-20); Calcium,Total 8.4 mg/dL (8.5-10.1); Chloride 114 mmol/L (98-107); EST Glomerular Filtration Rate 109 mL/min (>60); Est Glom Filt Rate - Afr Amer 132 mL/min (>60); Estimated Creatinine Clearance 89.99 ml/min; Glucose 99 mg/dL (74-106); Sodium Level 141 mmol/L (136-145)
[2021-10-25 15:42] LABS: Color, Urine Yellow (Yellow); Glucose, Dipstick Normal (Normal); Ketone-Dipstick 5 mg/dl (Negative); Leukocyte Esterase-Dipstick 100 /ul (Negative); Nitrite-Dipstick Negative (Negative); Occult Blood-Urine Negative /ul (Negative); Protein-Dipstick 30 mg/dl (Negative); Urine Bilirubin Dipstick Negative (Negative); Urine Clarity Clear (Clear); Urine Urobilinogen Normal (Normal)
[2021-10-25 15:49] LABS: Absolute Neutrophil Count 8.9 X10^3/uL (2.0-7.7); Basophil# 0.02 X10^3/uL; Basophil% 0.2 % (0-1); Eosinophil# 0.03 X10^3/uL; Eosinophils% 0.3 % (0-5); Hematocrit 43.6 % (37-47); Lymphocyte % 5.1 % (19-41); Mean Corp Hgb Conc 32.1 g/dL (32-36); Mean Corpuscular Volume 90.5 fL (81-99); Mean Platelet Vol. 10.4 fl (6.2-12.0); Monocyte# 0.29 X10^3/uL; NRBC Flagged by Analyzer 0 % (0-5); Neutrophil # 8.87 X10^3/uL (2.7-7.7); Neutrophil % 90.9 % (47-70); POSITIVE DIFFERENTIAL YES; Platelet Count 214 K/mm3 (150-450); RBC Distribution Width CV 12.9 % (11.6-14.6); RBC Distribution Width SD 42.7 fl (35.1-43.9); Red Blood Count 4.82 M/mm3 (4.2-5.4); White Blood Count 9.8 K/mm3 (4.4-11.0)
[2021-10-25 15:51] LABS: Internal QC Validated? YES +Cl - CLEAR BKGD; Pregnancy, Urine Negative Negative
[2021-10-25 15:52] LABS: Differential Indicated SCAN CRITERIA MET
[2021-10-25 16:12] LABS: Bacteria 2+ /hpf (None Seen); Mucous, Urine 3+ /hpf (<or=2+); Red Blood Cells-Urine 0-5 SEEN /hpf (0-5); Squamous Epithelial Cells - UA 0-5 SEEN /hpf (5-10); White Blood Cells 10-25 SEEN /hpf (0-5)
[2021-10-25 16:22] LABS: Platelet Estimate ADEQUATE (ADEQ); Red Cell Morphology N CHROM NORMAL (NORM C&C)
[2021-10-25 16:23] LABS: Anisocytosis RARE; Macrocytosis RARE
[2021-10-25 16:43] VITALS: BP 121/81; PULSE 81; RESP 22; O2SAT 100
[2021-10-25 16:57] VITALS: BP 121/81; PULSE 81; RESP 18; O2SAT 100
== END 2021-10-25 16:58 | disposition home or self-care (01) ==
PROVIDERS: Emergency Provider Emergency Medicine; PCP Pediatrics; Visit Provider Emergency Medicine
DX: R11.2 Nausea with vomiting, unspecified (principal); R19.7 Diarrhea, unspecified; R55 Syncope and collapse; Z79.899 Other long term (current) drug therapy
CPT/HCPCS: 80048; 81001; 81025; 85025; 87086; 87088; 93005; 99285; A4216

== ENCOUNTER 2022-01-25 00:41 | Emergency (ER) | payer OTHER, MEDICAID, SELFPAY ==
[2022-01-25 00:43] VITALS: BP 128/85; PULSE 90; RESP 15; TEMP 36.7; O2SAT 100; BMI 19.3
--- NOTE | 2022-01-25 01:05 | CT_ITS ---
STUDY: CT ABDOMEN AND PELVIS WITHOUT CONTRAST REASON FOR EXAM: Female, 26 years old. Kidney Stone RADIATION DOSAGE (If Supplied By Facility): CTDIvol = ( 6.04 ) mGy, DLP = ( 271.80 ) mGycm TECHNIQUE: Transaxial images were obtained from the dome of the diaphragm to the symphysis pubis without oral contrast, and without intravenous contrast. Sagittal and coronal images were reconstructed. Individualized dose optimization techniques were used for this CT. COMPARISON: None. FINDINGS: The visualized lung bases are unremarkable. The visualized portions of the heart are within normal limits. Normal liver. Normal gallbladder and extrahepatic biliary system. Normal spleen. Normal pancreas. Normal bilateral adrenal glands. Bilateral kidney stones, the largest measures 6 mm and is in the right renal pelvis at the UPJ. There is moderate right hydronephrosis. Normal visualized stomach. Normal small intestine. Normal colon. The appendix is visualized and appears normal. Normal abdominal aorta. Normal inferior vena cava. Normal retroperitoneum. Normal urinary bladder. Normal abdominal wall. Normal osseous structures. CT/Abdomen/Pelvis without Cont IMPRESSION: Bilateral kidney stones, the largest measures 6 mm and is in the right renal pelvis at the UPJ. There is moderate right hydronephrosis. Electronically Signed: Adrian Gomez MD at 2:09 EDT ,
--- NOTE | 2022-01-25 01:06 | ED.VIS.GI ---
HPI HPI - GI History of Present Illness Chief Complaint: Abd Pain Informant: patient and parent Narrative Narrative: Present evaluation lower back lower abdominal pain starting this morning. Pain would come and go get intense. Pain went to the right lower quadrant that was sharp. She had nausea with the pain. She called nursing line 11 PM when her pain was a 9. Told to go emergency room. Denies any abdominal surgeries. Last menstrual period a week ago. Denies history of kidney stones. Currently asymptomatic. Increasing thirst. Denies vomiting or diarrhea. Currently not nauseated. Denies any urinary symptoms. Prior similar symptoms: No PFSH PFSH Medical History Anxiety Autoimmune disease Depression Headache Trauma Home Medications cholecalciferol (vitamin D3) 125 mcg (5,000 unit) tablet (Vitamin D3) 125 mcg PO DAILY 07/27/20 [History Last Taken Unknown] levocetirizine 5 mg tablet (Xyzal) 5 mg PO DAILY 07/27/20 [History Last Taken Unknown] amitriptyline 10 mg tablet 10 mg PO QHS 10/25/21 [History Last Taken Unknown] drospirenone 3 mg-ethinyl estradiol 0.02 mg tablet (Loryna (28)) 1 tab PO DAILY 10/25/21 [History Last Taken Unknown] methylphenidate HCl 10 mg tablet 10 mg PO DAILY 10/25/21 [History Last Taken Unknown] omeprazole 40 mg capsule,delayed release 40 mg PO BID 10/25/21 [History Last Taken Unknown] ondansetron 4 mg disintegrating tablet 4 mg PO Q6H PRN nausea and vomiting #10 tabs 10/25/21 [Rx Last Taken Unknown] cephalexin 500 mg capsule 500 mg PO TID #20 caps 01/25/22 [Rx Last Taken Unknown] hydrocodone-acetaminophen 5-325mg 5mg-325mg 1 tab PO Q6H PRN pain 3 days #12 tabs 01/25/22 [Rx Last Taken Unknown] ibuprofen 600 mg tablet 600 mg PO 4X/DAY PRN Pain Or Fever #20 tabs 01/25/22 [Rx Last Taken Unknown] ondansetron 4 mg disintegrating tablet 4 mg PO Q6H PRN nausea and vomiting #12 tabs 01/25/22 [Rx Last Taken Unknown] tamsulosin 0.4 mg capsule (Flomax) 0.4 mg PO DAILY #7 caps 01/25/22 [Rx Last Taken Unknown] Allergy/AdvReac Type Severity Reaction Status Date / Time animal dander Allergy Other Verified 01/25/22 00:46 Sulfa (Sulfonamide Allergy Hives Verified 01/25/22 00:46 Antibiotics) Social History Smoking Status: Never smoker ROS ROS ED Constitutional Constitutional ED: Denies chills, fever(s) or sweats Eyes Eyes: Denies change in vision ENT ENT ED: Denies dysphagia or sore throat Cardiovascular Cardiovascular: Denies chest pain, leg edema, palpitations or racing heartbeat Respiratory/Chest Respiratory/Chest: Denies cough, dyspnea or dyspnea on exertion Gastrointestinal Gastrointestinal: Reports abdominal pain; Denies diarrhea, nausea or vomiting Genitourinary Genitourinary ED: Denies dysuria, hematuria or urinary frequency Musculoskeletal Musculoskeletal: Denies back pain, extremity pain or neck pain Integumentary Denies rash or wounds Neurologic Neurologic: Denies headache(s), paresthesias or weakness EXAM Physical Exam Const Vital Signs: 01/25/22 00:43 01/25/22 00:42 01/25/22 02:36 Temperature 98.1 F Temperature Source Oral Pulse Rate 90 75 Respiratory Rate 15 16 Blood Pressure 128/85 H 112/57 L Blood Pressure Mean 99 Pulse Ox 100 Oxygen Delivery Method Room Air Room Air Positive well nourished and well developed General Appearance ED: well developed and NAD HEENT HEENT Narrative: Mild dry mucosal membranes. normocephalic and atraumatic Eyes PERRL, EOMs intact bilaterally and conjunctivae normal General Eye ED: Yes normal appearance of both eyes Neck no lymphadenopathy and supple General: Negative for tenderness Chest Wall Chest: Negative for tenderness Resp normal respiratory effort and normal air movement Effort and Inspection: symmetric chest movement; Negative for respiratory distress Cardio regular rate, regular rhythm and no murmurs Peripheral Pulses: pulses 2+ throughout GI normal to inspection, nondistended, normoactive bowel sounds and non-tender GI Narrative: Negative Muñoz's or McBurney's tenderness. Negative Rovsing's. Palpation: Negative for guarding or rebound tenderness present Back/Spine no CVA tenderness and no thoracic nor lumbar tenderness Extremity normal to inspection General Extremety ED: Negative for edema or tenderness General Extremity: Negative for edema Neuro oriented x3 and no sensory deficits noted Sensorium / Orientation: awake and alert Skin no rashes or lesions noted and no wounds MDM MDM MDM Narrative Medical decision making narrative: Patient symptom-free on evaluation. After history, more concerning for renal colic in nature. Work-up initiated. Labs normal urine noted leukocytes white cells with blood. Culture sent. CT scan notes bilateral nephrolithiasis with right obstructive hydro with 6 mm stone at the UPJ. Reevaluation patient remained symptom-free. Discussed findings with the patient with colic symptoms. With UTI findings with the stone she is started on Keflex. Prescription for Flomax pain medicines and antiemetics to use as needed she is given follow-up with urology with strict return precautions. Discussed possible need for intervention with size of stone. She understands this. Mother is present. All questions were answered. Lab Data Attestation: I reviewed the patient's lab results. Labs: Laboratory Results - last 24 hr 01/25/22 01/25/22 01/25/22 00:50 00:50 01:11 WBC 7.4 RBC 4.54 Hgb 13.5 Hct 39.2 MCV 86.3 MCH 29.7 MCHC 34.4 RDW Std Deviation 39.1 RDW Coeff of [place] 12.4 Plt Count 292 MPV 10.0 Immature Gran % (Auto) 0.300 Neut % (Auto) 69.9 Lymph % (Auto) 22.8 [place] % (Auto) 5.4 Eos % (Auto) 1.2 Baso % (Auto) 0.4 Absolute Neuts (auto) 5.2 Absolute Lymphs (auto) 1.69 Nucleated RBC % 0 Sodium 138 Potassium 4.0 Chloride 106 Carbon Dioxide 25.0 Anion Gap 7 BUN 13 Creatinine 0.76 Estim Creat Clear Calc 86.13 Est GFR (MDRD) Af Amer 120 Est GFR (MDRD) Non-Af 99 BUN/Creatinine Ratio 17.1 Glucose 119 H Calcium 9.4 Urine Color Yellow Urine Clarity Sl. Cloudy Urine pH 6.0 Ur Specific [place] 1.025 Urine Protein 30 H Urine Glucose (UA) Normal Urine Ketones 5 H Urine Occult Blood 150 H Urine Nitrite Negative Urine Bilirubin Negative Urine Urobilinogen Normal Ur Leukocyte Esterase 100 H Urine RBC 50-100 SEEN Urine WBC 10-25 SEEN Ur Squamous Epith Cells 5-10 SEEN Amorphous Sediment 1+ Urine Bacteria 1+ Hyaline Casts 0-5 SEEN Fine Granular Casts 0-5 SEEN Urine Mucus 0 SEEN Urine Test Negative Radiography Diagnostic Testing: Clinical Impression(s) from Imaging Studies Abdomen/Pelvis CT 01/25/22 01:05 IMPRESSION: Bilateral kidney stones, the largest measures 6 mm and is in the right renal pelvis at the UPJ. There is moderate right hydronephrosis. Electronically Signed: Adrian Gomez MD at 2:09 EDT , Discharge Plan Triage Chief Complaint: Abd Pain ED Provider: Curtis Peres Dx/Rx/DC Orders Clinical Impression: Kidney stone on right side, UTI (urinary tract infection), Hematuria, Renal colic on right side Instructions: ED Hematuria, ED Kidney Stone w/ Colic Prescriptions: New hydrocodone-acetaminophen 5-325 mg tablet 1 tab PO Q6H PRN (Reason: pain) 3 Days Qty: 12 0RF cephalexin [cephalexin] 500 mg capsule 500 mg PO TID Qty: 20 0RF ibuprofen 600 mg tablet 600 mg PO 4X/DAY PRN (Reason: Pain Or Fever) Qty: 20 0RF tamsulosin [Flomax] 0.4 mg capsule 0.4 mg PO DAILY Qty: 7 0RF ondansetron 4 mg tablet,disintegrating 4 mg PO Q6H PRN (Reason: nausea and vomiting) Qty: 12 0RF No Action cholecalciferol (vitamin D3) [Vitamin D3] 125 mcg (5,000 unit) Tablet 125 mcg PO DAILY levocetirizine [Xyzal] 5 mg Tablet 5 mg PO DAILY Hold Instructions: while if possible. methylphenidate HCl 10 mg Tablet 10 mg PO DAILY omeprazole 40 mg Capsule,Delayed Release(Dr/Ec) 40 mg PO BID amitriptyline 10 mg Tablet 10 mg PO QHS drospirenone-ethinyl estradiol [Loryna (28)] 3-0.02 mg Tablet 1 tab PO DAILY ondansetron 4 mg tablet,disintegrating 4 mg PO Q6H PRN (Reason: nausea and vomiting) Qty: 10 0RF Primary Care Provider: Malachi Smith Referrals: Bertin Baer MD [Med Staff - Active Staff] - 3-5 Days Malachi Smith MD [Primary Care Provider] - Activity Restrictions/Additional Instructions: 6 mm right UPJ stone with moderate hydronephrosis. Bilateral nephrolithiasis. Urine with signs of infection culture sent. Take medications as prescribed. Strain your urine. Follow-up with Dr. Baer. Return if any worsening symptoms. Disposition Disposition: Home, Self Care Discharge Date/Time: 01/25/22 03:40
[2022-01-25 01:15] LABS: Absolute Lymphocyte Count 1.69 X10^3/uL (0.83-4.51); Absolute Neutrophil Count 5.2 X10^3/uL (2.0-7.7); Basophil# 0.03 X10^3/uL; Basophil% 0.4 % (0-1); Eosinophil# 0.09 X10^3/uL; Eosinophils% 1.2 % (0-5); Hematocrit 39.2 % (37-47); Hemoglobin 13.5 g/dL (12.0-15.0); Lymphocyte # 1.69 X10^3/ul (0.83-4.51); Lymphocyte % 22.8 % (19-41); Mean Corp Hgb Conc 34.4 g/dL (32-36); Mean Corpuscular Hgb 29.7 pg (27.0-32.0); Mean Corpuscular Volume 86.3 fL (81-99); Monocyte% 5.4 % (0-10); NRBC Flagged by Analyzer 0 % (0-5); Neutrophil # 5.17 X10^3/uL (2.7-7.7); Neutrophil % 69.9 % (47-70); Platelet Count 292 K/mm3 (150-450); RBC Distribution Width CV 12.4 % (11.6-14.6); RBC Distribution Width SD 39.1 fl (35.1-43.9); Red Blood Count 4.54 M/mm3 (4.2-5.4); White Blood Count 7.4 K/mm3 (4.4-11.0)
[2022-01-25] MEDS: 0.9% Normal Saline 1,000 ML 999 ML IV (01:16)
[2022-01-25 01:18] LABS: Color, Urine Yellow (Yellow); Glucose, Dipstick Normal (Normal); Ketone-Dipstick 5 mg/dl (Negative); Leukocyte Esterase-Dipstick 100 /ul (Negative); Mucous, Urine 0 SEEN /hpf (<or=2+); Nitrite-Dipstick Negative (Negative); Occult Blood-Urine 150 /ul (Negative); Protein-Dipstick 30 mg/dl (Negative); Specific Gravity, Urine 1.025 (1.002-1.030); Urine Bilirubin Dipstick Negative (Negative); Urine Clarity Sl. Cloudy (Clear); Urine Urobilinogen Normal (Normal)
[2022-01-25 01:29] LABS: Anion Gap 7 (5-15); BUN 13 mg/dL (7-18); BUN/Creat Ratio 17.1 RATIO (10-20); Calcium,Total 9.4 mg/dL (8.5-10.1); Chloride 106 mmol/L (98-107); Creatinine, Serum 0.76 mg/dL (0.55-1.02); EST Glomerular Filtration Rate 99 mL/min (>60); Est Glom Filt Rate - Afr Amer 120 mL/min (>60); Estimated Creatinine Clearance 86.13 ml/min; Glucose 119 mg/dL (74-106); Sodium Level 138 mmol/L (136-145)
[2022-01-25 01:33] LABS: Fine Granular Cast- Urine 0-5 SEEN /lpf (0-5); Red Blood Cells-Urine 50-100 SEEN /hpf (0-5)
[2022-01-25 01:34] LABS: Squamous Epithelial Cells - UA 5-10 SEEN /hpf (5-10); White Blood Cells 10-25 SEEN /hpf (0-5)
[2022-01-25 01:35] LABS: Amorphous Sediment 1+; Bacteria 1+ /hpf (None Seen)
[2022-01-25 01:36] LABS: Hyaline Cast 0-5 SEEN /lpf (0-5)
[2022-01-25 01:37] LABS: Internal QC Validated? YES +Cl - CLEAR BKGD; Pregnancy, Urine Negative Negative
[2022-01-25 02:36] VITALS: BP 112/57; PULSE 75; RESP 16
[2022-01-25] MEDS: Cephalexin 250 MG Capsule 500 MG PO (02:45)
[2022-01-25] MEDS: Tamsulosin HCl 0.4 MG Capsule PO (02:45)
--- NOTE | 2022-01-25 03:39 | NURSING ---
Pharmacy unable to complete meds to bed and fill scripts. 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
== END 2022-01-25 03:40 | disposition home or self-care (01) ==
PROVIDERS: Emergency Provider Emergency Medicine; PCP Pediatrics; Visit Provider Emergency Medicine
DX: N23 Unspecified renal colic (principal); N20.0 Calculus of kidney; N39.0 Urinary tract infection, site not specified; R31.9 Hematuria, unspecified; F41.9 Anxiety disorder, unspecified; F32.A Depression, unspecified
CPT/HCPCS: 74176; 80048; 81001; 81025; 85025; 87086; 87088; 96360; 99285; J7030; A4216